=== PATIENT | female | born 1965 | race Two or more races ===

== ENCOUNTER 2018-08-01 10:42 | Emergency (ER) | payer MEDICAID ==
[~2018-08-01] VITALS: Ht 157.5 cm; Wt 68.0 kg
[~2018-08-01 10:42] MED LIST: ARTHROTEC1 TAB PO; ASPIR-LOW81 MG PO; FERROUS SULFAT325 MG PO; LOPID600 MG PO; NAPROXEN500 M1 ORAL; NORCO 5-325 TA1 EACH ORAL; NOVOLIN 70100 UNIT/1 SUBQ; insulin 70/30
[2018-08-01 11:12] VITALS: BP 125/71
--- NOTE | 2018-08-01 11:18 | NUR ---
ED Nurse Note:pt. reported falling yesterday and hitting back of her head, no laceration present, c/o headache
--- NOTE | 2018-08-01 11:25 | Emergency Room Report ---
History of Present Illness General Chief Complaint: Multiple Trauma/Fall Source: Patient Present Illness HPI Patient presents with complaints of trauma to the back occipital region of her head Reports that this happened around 10:00 this morning patient was taking out the trash and essentially has been raining outside and that was slippery and the patient fell backwards hitting the back of her head Denies any lapse of consciousness Denies any nausea or vomiting however patient has significant discomfort Denies any neck pain denies any upper weakness Denies any other focal weakness or pain Allergies: Coded Allergies: No Known Allergies (Unverified , 07/13/12) Patient History Past Medical History: see triage record Pertinent Family History: none Now: Yes : 5 Reviewed Nursing Documentation: PMH: Agreed; PSxH: Agreed Nursing Documentation-PMH Past Medical History: No History, Except For Hx Diabetes: Yes Review of Systems All Other Systems: negative except mentioned in HPI Physical Exam Vital Signs Date Time Temp Pulse Resp B/P (MAP) Pulse Ox O2 Delivery O2 Flow Rate FiO2 08/01/18 10:47 97.9 71 16 125/71 97 Room Air Sp02 EP Interpretation: reviewed, normal General Appearance: no apparent distress Head: other - Approximately 2 x 2 centimeter hematoma occipital region mid point Eyes: bilateral eye PERRL, bilateral eye EOMI ENT: normal pharynx Neck: normal inspection, full range of motion, supple, no meningismus Respiratory: lungs clear, no retraction, no accessory muscle use Cardiovascular #1: regular rate, rhythm Gastrointestinal: non tender, soft Musculoskeletal: normal inspection Neurologic: alert, oriented x3, responsive Psychiatric: mood/affect normal Skin: normal color, no rash Lymphatic: no adenopathy Medical Decision Making Diagnostic Impression: Primary Impression: Head injury ER Course Given the patient's trauma and complaints imaging was obtained No obvious acute pathology was seen patient observed further in the emergency room and at this time is stable for close outpatient follow-up CT/MRI/US Diagnostic Results CT/MRI/US Diagnostic Results : Impression CT head no acute disease Last Vital Signs Date Time Temp Pulse Resp B/P (MAP) Pulse Ox O2 Delivery O2 Flow Rate FiO2 08/01/18 11:12 97.9 71 16 125/71 97 Room Air Status: improved Disposition: HOME, SELF-CARE Condition: Improved Scripts Ibuprofen* (MOTRIN*) 600 Mg Tablet 600 MG ORAL Q8H PRN for For Pain, #20 TAB 0 Refills Prov: Greg Tang DO 08/01/18 Additional Instructions: Patient is provided with the discharge instructions notified to follow up with primary doctor in the next 2-3 days otherwise return to the er with any worsening symptoms. Please note that this report is being documented using DRAGON technology. This can lead to erroneous entry secondary to incorrect interpretation by the dictating instrument. Greg Tang DO Aug 01, 2018 11:24
--- NOTE | 2018-08-01 12:51 | Diagnostic Imaging Report ---
INDICATION: Trauma TECHNIQUE: Multiple, contiguous 2.5 mm axial cuts of the brain are obtained from the posterior fossa to the cranial vault. Sagittal and coronal reformatted images provided. No IV contrast is administered. COMPARISON: CT dated 03/23/13 FINDINGS: No intracranial hemorrhage, abnormal intra- or extra-axial collections or parenchymal lesions are seen. The shape and configuration of the cortical sulci, basal cisterns and ventricles are within normal limits. The dewey-white differentiation is preserved. No evidence of mass effect, midline shift, or edema. Stable focal calcifications in bilateral frontal lobes. The osseous structures are unremarkable. The visualized portions of the paranasal sinuses are clear. IMPRESSION: No significant change. Stable calcifications of bifrontal lobe likely secondary to old granulomatous disease. Otherwise normal CT of the head. CTDI: 70.38 mGy DLP: 1368.83 mGycm
[2018-08-01] MEDS ORDERED: IBUPROFEN600 MG ORAL (13:11)
[2018-08-01 13:33] VITALS: BP 125/71
== END 2018-08-01 13:33 | disposition home or self-care (01) ==
LOC: EMR 11:10
DX: S09.90XA Unspecified injury of head, initial encounter (principal); W01.198A Fall on same level from slipping, tripping and stumbling with subsequent striking against other object, initial encounter; Y92.89 Other specified places as the place of occurrence of the external cause; E11.9 Type 2 diabetes mellitus without complications
CPT/HCPCS: 70450; 99284